=== PATIENT | male | born 1940 | race Caucasian/White ===

== ENCOUNTER 2017-11-08 14:03 | Outpatient (CLI) | payer OTHER | END 2017-11-08 15:06 | disposition home or self-care (01) | LOC: LAB 14:03 | DX: R31.0 Gross hematuria (principal); R30.0 Dysuria ==

== ENCOUNTER 2018-03-03 08:32 | Outpatient (CLI) | payer OTHER | END 2018-03-03 09:11 | disposition home or self-care (01) | LOC: LAB 08:32 | DX: I10 Essential (primary) hypertension (principal); N39.0 Urinary tract infection, site not specified; D68.8 Other specified coagulation defects ==

== ENCOUNTER 2018-03-21 08:26 | Inpatient (IN) | payer OTHER ==
[~2018-03-21] VITALS: Ht 165.1 cm; Wt 88.5 kg
[2018-03-21] MEDS ORDERED: FINASTERIDE5 MG PO (09:25)
[2018-03-21] MEDS ORDERED: NORVASC10 MG PO (09:25)
[2018-03-21] MEDS ORDERED: CARDURA XL4 MG PO (09:25)
[2018-03-21] MEDS ORDERED: TOPROL XL50 M1 PO (09:26)
[2018-03-21] MEDS ORDERED: LOSARTAN-HCTZ1 EAC1 PO (09:26)
[2018-03-21] MEDS ORDERED: CATAPRES0.2 MG PO (09:27)
[2018-03-21] MEDS ORDERED: NEURONTIN300 MG PO (09:27)
== END 2018-03-25 10:03 | disposition home or self-care (01) | DRG 714 ==
LOC: CIR.AMB 03-23 08:24 → EDSTATUS 03-23 08:33 → SURH 03-23 08:37 → O/R 03-23 10:40 → SURG 03-23 10:40
PROVIDERS: Urology
PROC: 0WCR8ZZ Extirpation of Matter from Genitourinary Tract, Via Natural or Artificial Opening Endoscopic (ICD-10-PCS; 2018-03-23)
PROC: 0VT08ZZ Resection of Prostate, Via Natural or Artificial Opening Endoscopic (ICD-10-PCS; principal; 2018-03-23 10:30)
DX: N40.0 Benign prostatic hyperplasia without lower urinary tract symptoms (principal); N42.0 Calculus of prostate; I10 Essential (primary) hypertension; R33.8 Other retention of urine

== ENCOUNTER 2018-03-30 19:11 | Emergency (ER) | payer OTHER ==
[~2018-03-30] VITALS: Ht 165.1 cm; Wt 88.5 kg
[~2018-03-30 19:11] MED LIST: CARDURA XL4 MG PO; CATAPRES0.2 MG PO; FINASTERIDE5 MG PO; LOSARTAN-HCTZ1 EAC1 PO; NEURONTIN300 MG PO; NORVASC10 MG PO; TOPROL XL50 M1 PO
== END 2018-03-30 22:10 | disposition home or self-care (01) ==
LOC: ER 19:11
DX: R33.8 Other retention of urine (principal)

== ENCOUNTER 2018-05-16 12:17 | Outpatient (CLI) | payer OTHER | END 2018-05-16 13:04 | disposition home or self-care (01) | LOC: LAB 12:17 | DX: E83.52 Hypercalcemia (principal); N18.3 Chronic kidney disease, stage 3 (moderate); I10 Essential (primary) hypertension; R80.8 Other proteinuria; R80.3 Bence Jones proteinuria ==

== ENCOUNTER 2018-08-20 07:14 | Outpatient (CLI) | payer OTHER | END 2018-08-20 07:26 | disposition home or self-care (01) | LOC: LAB 07:14 | DX: N30.00 Acute cystitis without hematuria (principal) ==

== ENCOUNTER 2018-11-02 07:54 | Day surgery (SDC) | payer OTHER ==
[~2018-11-02 07:54] MED LIST changes: +CANDESARTAN-HC1 EAC1 PO
[2018-11-02] MEDS ORDERED: PERCOCET 5-3251 EACH PO (12:54)
== END 2018-11-02 14:45 | disposition home or self-care (01) ==
LOC: CIR.AMB 07:54
DX: D35.1 Benign neoplasm of parathyroid gland (principal)

== ENCOUNTER 2020-12-06 07:13 | Outpatient (CLI) | payer OTHER ==
[~2020-12-06 07:13] MED LIST changes: +PERCOCET 5-3251 EACH PO
== END 2020-12-06 12:30 | disposition home or self-care (01) ==
LOC: NUCLEAR 07:13
PROVIDERS: ATTEND Internal Medicine Cardiovascular Disease
DX: I50.1 Left ventricular failure, unspecified (principal)
CPT/HCPCS: 78452; 93017; A9500; J0153

== ENCOUNTER 2021-03-13 07:58 | Outpatient (CLI) | payer OTHER | END 2021-03-13 08:07 | disposition home or self-care (01) | LOC: NUCLEAR 07:58 | PROVIDERS: ATTEND Internal Medicine Cardiovascular Disease | DX: I87.2 Venous insufficiency (chronic) (peripheral) (principal) ==

== ENCOUNTER 2021-03-14 07:58 | Outpatient (CLI) | payer OTHER | END 2021-03-14 07:59 | disposition home or self-care (01) | LOC: NUCLEAR 07:58 | PROVIDERS: ATTEND Internal Medicine Cardiovascular Disease | DX: I73.9 Peripheral vascular disease, unspecified (principal) ==

== ENCOUNTER 2021-06-02 09:12 | Outpatient (CLI) | payer OTHER | END 2021-06-02 09:13 | disposition home or self-care (01) | LOC: LAB 09:12 | PROVIDERS: ATTEND Radiology Diagnostic Radiology | DX: N28.89 Other specified disorders of kidney and ureter (principal) ==

== ENCOUNTER 2021-06-10 07:49 | Outpatient (CLI) | payer OTHER | END 2021-06-10 08:46 | disposition home or self-care (01) | LOC: TOM 07:49 | PROVIDERS: ATTEND Specialist | DX: C64.1 Malignant neoplasm of right kidney, except renal pelvis (principal); N20.0 Calculus of kidney | CPT/HCPCS: 74178; Q9965 ==

== ENCOUNTER 2022-01-06 13:20 | Outpatient (CLI) | payer OTHER | END 2022-01-06 13:23 | disposition home or self-care (01) | LOC: RAD 13:20 | PROVIDERS: ATTEND Urology | DX: N21.0 Calculus in bladder (principal) ==

== ENCOUNTER 2022-09-08 07:14 | Outpatient (CLI) | payer OTHER | END 2022-09-08 07:16 | disposition home or self-care (01) | LOC: NUCLEAR 07:14 | PROVIDERS: ATTEND Internal Medicine | DX: I20.8 Other forms of angina pectoris (principal); R06.9 Unspecified abnormalities of breathing; I11.9 Hypertensive heart disease without heart failure | CPT/HCPCS: 78452; 93017; A9500; J0153 ==

== ENCOUNTER 2024-03-22 07:17 | Outpatient (CLI) | payer OTHER | END 2024-03-22 07:19 | disposition home or self-care (01) | LOC: NUCLEAR 07:17 | PROVIDERS: ATTEND Specialist | DX: D35.1 Benign neoplasm of parathyroid gland (principal); M81.0 Age-related osteoporosis without current pathological fracture | CPT/HCPCS: 78072; 78830; 77080; A9500 ==